=== PATIENT | female | born 1960 | race African-American/Black ===

== ENCOUNTER 2023-05-21 20:53 | Emergency (ER) | payer OTHER ==
[~2023-05-21] VITALS: Ht 149.9 cm; Wt 105.0 kg
[2023-05-21 21:15] VITALS: BP 166/85; RESP 18; TEMP 97.8; O2SAT 97
[2023-05-21 21:20] VITALS: PULSE 89
== END 2023-05-21 23:03 | disposition left against medical advice (07) ==
LOC: ER 21:04
DX: R21 Rash and other nonspecific skin eruption (principal); Z53.21 Procedure and treatment not carried out due to patient leaving prior to being seen by health care provider
CPT/HCPCS: 99281